=== PATIENT | male | born 1995 | race Two or more races ===

== ENCOUNTER 2025-09-11 21:13 | Emergency (ER) | payer SELFPAY ==
[2025-09-11 21:48] VITALS: BP 133/80; PULSE 87; RESP 16; TEMP 36.7; O2SAT 97; BMI 31.9
[2025-09-11 22:10] VITALS: BP 133/80; PULSE 87; RESP 16; TEMP 36.7; O2SAT 97
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
[2025-09-11 22:52] VITALS: BP 133/80; PULSE 87; RESP 16; TEMP 36.7; O2SAT 97
== END 2025-09-11 22:53 | disposition home or self-care (01) ==
PROVIDERS: Emergency Provider Student in an Organized Health Care Education/Training Program
DX: Z48.02 Encounter for removal of sutures (principal)
CPT/HCPCS: 99284